=== PATIENT | male | born 1990 | race African-American/Black ===

== ENCOUNTER 2020-07-23 16:53 | Emergency (ER) | payer OTHER ==
[~2020-07-23] VITALS: Ht 177.8 cm; Wt 91.0 kg
[2020-07-23 17:30] VITALS: BP 128/79
== END 2020-07-23 21:20 | disposition left against medical advice (07) ==
LOC: ER 17:24
DX: R19.7 Diarrhea, unspecified (principal); Z53.21 Procedure and treatment not carried out due to patient leaving prior to being seen by health care provider

== ENCOUNTER 2020-11-27 07:59 | Emergency (ER) | payer OTHER ==
[~2020-11-27] VITALS: Ht 180.3 cm; Wt 100.0 kg
[2020-11-27 08:34] VITALS: BP 127/88
== END 2020-11-27 10:18 | disposition short-term general hospital (02) ==
LOC: ER 07:59
DX: S41.111A Laceration without foreign body of right upper arm, initial encounter (principal); X99.9XXA Assault by unspecified sharp object, initial encounter; Y93.89 Activity, other specified; Y92.488 Other paved roadways as the place of occurrence of the external cause
CPT/HCPCS: 36415; 86850; 86900; 86920; 99291; P9016